=== PATIENT | female | born 1965 | race Caucasian/White ===

== ENCOUNTER 2020-05-11 07:08 | Emergency (ER) | payer MEDICARE, OTHER ==
[~2020-05-11 07:08] MED LIST: ALLERGY10 MG PO; ELAVIL50 MG PO; ESTRACE1 MG PO; MELOXICAM15 MG PO; METFORMIN HCL500 MG PO; ORPHENADRINE C100 MG PO; OXYCODONE-ACET1 EACH PO; PERCOCET 10-321 EACH PO; PERCOCET 10/321 EACH PO; PRAVACHOL20 MG PO; PROTONIX 40MG T40 MG PO; RIZATRIPTAN10 MG PO; SYNTHROID150 MCG PO; TESSALON PERLE100 M1 PO; TOPAMAX100 MG PO; TOPAMAX50 MG PO; ZYRTEC10 M3 PO
[2020-05-11] MEDS ORDERED: ENDOCET 10-3251 EACH PO (07:59)
== END 2020-05-11 08:19 | disposition home or self-care (01) ==
LOC: FER 07:08
DX: S30.0XXA Contusion of lower back and pelvis, initial encounter (principal); M25.552 Pain in left hip; G89.29 Other chronic pain; F17.200 Nicotine dependence, unspecified, uncomplicated; Z76.0 Encounter for issue of repeat prescription; Z79.891 Long term (current) use of opiate analgesic; W10.9XXA Fall (on) (from) unspecified stairs and steps, initial encounter
CPT/HCPCS: 73502

== ENCOUNTER 2020-09-08 12:45 | Emergency (ER) | payer MEDICARE, OTHER ==
[~2020-09-08 12:45] MED LIST changes: +ENDOCET 10-3251 EACH PO
[2020-09-08 16:30] LABS: BASOPHIL 0.3 % (0-2); EOSINOPHIL 2.7 % (0-5); HCT 41.8 % (37.0-47.0); HGB 13.9 g/dl (12.5-16.0); LYMPHOCYTE 41.2 % (15-48); MCH 27.3 pg (25.0-31.0); MCHC 33.3 g/dL (32.0-36.0); MONOCYTE 6.9 % (0-12); MPV 10.5 fL (6.0-9.5); NEUTROPHIL 48.7 % (41-80); NRBC 0; PLT 291 K/uL (150-400); RDW 13.2 % (11.5-14.0)
[2020-09-08 16:59] LABS: BUN/CREAT RATIO (CALC) 41.7 RATIO; CREATININE 0.6 mg/dL (0.51-0.95); POTASSIUM 4.3 mmol/L (3.5-5.1)
[2020-09-08] MEDS ORDERED: KEFLEX250 MG PO (17:22)
[2020-09-08] MEDS ORDERED: NAPROXEN500 MG PO (17:22)
== END 2020-09-08 17:40 | disposition home or self-care (01) ==
LOC: FER 12:45
PROVIDERS: Nurse Practitioner Family
DX: S60.561A Insect bite (nonvenomous) of right hand, initial encounter (principal); S60.861A Insect bite (nonvenomous) of right wrist, initial encounter; S50.861A Insect bite (nonvenomous) of right forearm, initial encounter; L03.113 Cellulitis of right upper limb; Z23 Encounter for immunization; F17.290 Nicotine dependence, other tobacco product, uncomplicated; Z88.8 Allergy status to other drugs, medicaments and biological substances; W57.XXXA Bitten or stung by nonvenomous insect and other nonvenomous arthropods, initial encounter
CPT/HCPCS: 36415; 73130; 80048; 85025; 90471; 90715; J1885

== ENCOUNTER 2021-01-18 14:09 | Emergency (ER) | payer MEDICARE, OTHER ==
[~2021-01-18 14:09] MED LIST changes: +KEFLEX250 MG PO; +NAPROXEN500 MG PO
[2021-01-18] MEDS ORDERED: NAPROXEN500 MG PO (16:13)
== END 2021-01-18 16:41 | disposition home or self-care (01) ==
LOC: FER 14:09
DX: S93.602A Unspecified sprain of left foot, initial encounter (principal); M25.471 Effusion, right ankle; F17.290 Nicotine dependence, other tobacco product, uncomplicated; W10.9XXA Fall (on) (from) unspecified stairs and steps, initial encounter; Y92.009 Unspecified place in unspecified non-institutional (private) residence as the place of occurrence of the external cause
CPT/HCPCS: 73610; 73630

== ENCOUNTER 2021-08-24 14:09 | Emergency (ER) | payer MEDICARE, OTHER ==
[2021-08-24] MEDS ORDERED: PREDNISONE 20MG20 MG PO (15:24)
[2021-08-24] MEDS ORDERED: FLEXERIL5 MG PO (15:24)
== END 2021-08-24 15:53 | disposition home or self-care (01) ==
LOC: FER 14:09
DX: M54.16 Radiculopathy, lumbar region (principal); F17.290 Nicotine dependence, other tobacco product, uncomplicated; Z28.310 Unvaccinated for COVID-19
CPT/HCPCS: 72110; J1885

== ENCOUNTER 2021-10-27 02:44 | Emergency (ER) | payer MEDICARE, OTHER ==
[~2021-10-27 02:44] MED LIST changes: +FLEXERIL5 MG PO; +PREDNISONE 20MG20 MG PO
[2021-10-27 03:44] LABS: ALBUMIN 4.7 g/dL (3.4-5.0); ALKALINE PHOSHATASE 56 U/L (46-116); ALT 74 U/L (14-59); AST 73 U/L (15-37); BILIRUBIN - TOTAL 0.2 mg/dL (0.2-1.0); BUN 18 mg/dL (7-18); BUN/CREAT RATIO (CALC) 17.8 RATIO; CHLORIDE 104 mmol/L (98-107); CO2 (BICARBONATE) 24 mmol/L (21-32); CREATININE 1.01 mg/dL (0.51-0.95); GLOBULIN (CALCULATION) 3.4 g/dL; GLUCOSE 105 mg/dL (74-106); POTASSIUM 4.2 mmol/L (3.5-5.1); TOTAL PROTEIN 8.1 g/dL (6.4-8.2); URIC ACID 3.8 mg/dL (2.6-6.2)
[2021-10-27 03:45] LABS: C-REACTIVE PROTEIN < 0.20 mg/dL (<=0.90)
[2021-10-27 03:50] LABS: BASOPHIL 0.7 % (0-2); EOSINOPHIL 2.9 % (0-5); HCT 42.5 % (37.0-47.0); HGB 13.8 g/dl (12.5-16.0); LYMPHOCYTE 46.8 % (15-48); MCH 28.9 pg (25.0-31.0); MCHC 32.5 g/dL (32.0-36.0); MCV 88.9 fL (78.0-100.0); MONOCYTE 7.3 % (0-12); MPV 10.9 fL (6.0-9.5); NEUTROPHIL 41.4 % (41-80); NRBC 0; PLT 310 K/uL (150-400); RBC 4.78 M/uL (4.20-5.40); WBC 9.1 K/uL (4.0-10.5)
[2021-10-27 04:07] LABS: INR 0.92 (0.9-1.2); PROTHROMBIN TIME 12.1 SECONDS (11.9-13.9); PTT 29.3 SECONDS (24.9-34.6)
[2021-10-27 04:09] LABS: D-DIMER 0.34 ug/mLFEU (0.00-0.41)
[2021-10-27] MEDS ORDERED: NORCO 5-325 TA1 EACH PO (04:16)
== END 2021-10-27 04:40 | disposition home or self-care (01) ==
LOC: FER 02:44
PROVIDERS: Emergency Medicine
DX: M23.91 Unspecified internal derangement of right knee (principal); M25.461 Effusion, right knee; E11.9 Type 2 diabetes mellitus without complications; Z79.84 Long term (current) use of oral hypoglycemic drugs; Z88.8 Allergy status to other drugs, medicaments and biological substances
CPT/HCPCS: 36415; 73564; 80053; 84145; 84550; 85025; 85379; 85610; 85730; 86140; J1170; J1885; J2405